=== PATIENT | male | born 2000 | race Caucasian/White ===

== ENCOUNTER → 2021-06-16 | Outpatient (CLI) | payer OTHER ==
--- NOTE | 2021-06-16 09:34 | PFTRPT ---
Height: 67.50 Inches Weight: 153.00 Lbs BSA: 1.81 Diagnosis: R91.8 DATE: 06/16/2021 ORDERING PHYSICIAN: DERRICK Rondon Pre and post bronchodilator studies have excellent technical quality. Forced vital capacity is reduced. FEV1 is out of proportion. Obstructive index is therefore reduced. Expiratory limit of the flow-volume loop is consistent with very significant flow rate limitation. Favorable bronchodilator response is identified. Total lung capacity is elevated. Residual volume is consistent with air trapping. Diffusing capacity is normal. Hemoglobin is acceptable at 14.6. Airway resistance is elevated with a concomitant decrease in airway conductance. IMPRESSION: Severe obstructive ventilatory impairment with air trapping. Favorable bronchodilator response. Please correlate clinically. MTDD
== END ==
LOC: M CARPUL 08:52
PROVIDERS: ATTEND Physician Assistant
DX: R91.8 Other nonspecific abnormal finding of lung field (principal)

== ENCOUNTER → 2021-07-01 | Outpatient (CLI) | payer OTHER ==
--- NOTE | 2021-07-01 09:11 | REP ---
INDICATION: ABN FINDING OF LUNG. COMPARISON: CT the chest 04/10/2021, chest x-ray 04/09/2021 TECHNIQUE: Noncontrast scanning through the chest with coronal and sagittal reconstructions. FINDINGS: The lungs are well inflated. Apical pleuroparenchymal fibrosis with pleural thickening on the right and minor fibrotic changes to the extreme left apex and this is unchanged from the previous study. There are curvilinear fibrotic changes in the right mid and upper lung zone laterally and posteriorly, stable. There is no pleural effusion. The left lung shows no acute finding. The sclerotic density peripherally in the left mid lung zone on chest x-ray is confirmed as a posterolateral left 7th rib bone island on CT. No left pleural effusion or calcification. In the left lateral basal segment mid axillary line there is linear fibrotic change in the deep sulcus seen best on images 93 and 94. This is stable. Heart is not enlarged. There is no pericardial thickening or effusion. Small thymic remnant is noted as normal finding in this age group. No pathologic sized mediastinal or hilar adenopathy. No aortic aneurysm. Airway is intact. Bony thorax shows sternum, manubrium, medial clavicles, scapula and visualized portions of humeral heads grossly intact. Ribs show only a sclerotic bone island posterolaterally in the left 7th rib and the spine shows no focal lesion. The upper abdomen shows that portion of liver included to be unremarkable. Gallbladder without calcified stone or mass. Adrenal glands, upper poles of kidneys and visible pancreas unremarkable. No splenomegaly or focal lesion. No ascites. I see no hiatal hernia. IMPRESSION: 1. Apical pleuroparenchymal scarring and pleural thickening on the right and minor apical scarring on the left, stable. There are areas of the curvilinear linear fibrotic change in the right mid upper lung zone and in the left lateral base deep sulcus lateral basal segment at the mid axillary line, all stable. No parenchymal nodule, acute infiltrate, pleural effusion or parenchymal mass. 2. No cardiomegaly, pericardial thickening or effusion, aortic aneurysm, mediastinal or hilar adenopathy nor other acute mediastinal abnormality. 3. Bone island posterolateral left 7th rib corresponding to nodular density seen on chest x-ray. No other bony finding. Upper abdominal structures unremarkable. <Electronically signed by German Wen > 07/01/21 [id number]
== END ==
LOC: M RAD 07:54
PROVIDERS: ATTEND Physician Assistant
DX: R91.8 Other nonspecific abnormal finding of lung field (principal)

== ENCOUNTER → 2021-07-22 | Outpatient (REF) | payer OTHER ==
[2021-07-22 17:57] LABS: BASO # 0.1 10^3/uL (0.0-0.2); BASO % 0.6 % (0.0-1.0); EOS # 0.2 10^3/uL (0.0-0.5); EOS % 1.8 % (0.0-3.0); HEMATOCRIT 47.1 % (42.0-52.0); HEMOGLOBIN 15.6 g/dl (13.5-17.5); LYMPH % 32.1 % (24.0-44.0); MEAN CORPUSCULAR HEMOGLOBIN 28.3 pg (27.0-33.0); MEAN CORPUSCULAR HGB CONC 33.1 g/dl (32.0-36.5); MEAN CORPUSCULAR VOLUME 85.3 fl (80.0-96.0); MONO # 0.7 10^3/uL (0.0-0.8); MONO % 7.9 % (2.0-8.0); NEUTROPHILS # 5.3 10^3/uL (1.5-8.5); NEUTROPHILS % 57.4 % (36.0-66.0); PLATELET COUNT, AUTOMATED 348 10^3/uL (150-450); RED BLOOD COUNT 5.52 10^6/uL (4.30-6.10); WHITE BLOOD COUNT 9.3 10^3/uL (4.0-10.0)
== END ==
LOC: M LAB REF 17:18
PROVIDERS: ATTEND Physician Assistant
DX: J45.40 Moderate persistent asthma, uncomplicated (principal)

== ENCOUNTER → 2022-01-15 | Outpatient (REF) | payer OTHER ==
[2022-01-15 13:33] LABS: BASO # 0.1 10^3/uL (0.0-0.2); BASO % 0.8 % (0.0-1.0); EOS # 0.2 10^3/uL (0.0-0.5); EOS % 2.2 % (0.0-3.0); HEMATOCRIT 47.9 % (42.0-52.0); LYMPH # 2.2 10^3/uL (1.5-5.0); LYMPH % 30.3 % (24.0-44.0); MEAN CORPUSCULAR HEMOGLOBIN 28.4 pg (27.0-33.0); MEAN CORPUSCULAR HGB CONC 33.4 g/dl (32.0-36.5); MEAN CORPUSCULAR VOLUME 85.1 fl (80.0-96.0); MONO # 0.7 10^3/uL (0.0-0.8); MONO % 9.3 % (2.0-8.0); NEUTROPHILS # 4.2 10^3/uL (1.5-8.5); NEUTROPHILS % 57.1 % (36.0-66.0); PLATELET COUNT, AUTOMATED 379 10^3/uL (150-450); RED BLOOD COUNT 5.63 10^6/uL (4.30-6.10); WHITE BLOOD COUNT 7.3 10^3/uL (4.0-10.0)
== END ==
LOC: M LAB REF 13:06
PROVIDERS: ATTEND Internal Medicine Pulmonary Disease
DX: J45.50 Severe persistent asthma, uncomplicated (principal)

== ENCOUNTER → 2022-07-06 | Outpatient (CLI) | payer OTHER | LOC: M RAD 08:45 | PROVIDERS: ATTEND Internal Medicine Pulmonary Disease | DX: R91.8 Other nonspecific abnormal finding of lung field (principal) ==